=== PATIENT | female | born 1990 | race Caucasian/White ===

== ENCOUNTER 2020-05-02 22:00 | Emergency (ER) | payer OTHER ==
[~2020-05-02] VITALS: Ht 167.6 cm; Wt 99.8 kg
[2020-05-02 22:07] VITALS: BP_SYST 156
[2020-05-02] MEDS ORDERED: DIPH-TET-PERTUS Vaccine 0.5 ML VIAL (ADACEL) I.M. ONE (22:30)
[2020-05-02] MEDS ORDERED: BACITRACIN 1 GM OINT TP ONE (22:30)
[2020-05-02] MEDS ORDERED: IBUPROFEN 800 MG TABLET PO ONE (22:30)
[2020-05-02] MEDS ORDERED: AMOXICILLIN/CLAVULANATE POTASSIUM 875 MG TABLET PO ONE (23:15)
[2020-05-02 23:20] VITALS: BP_SYST 133
== END 2020-05-02 23:20 | disposition home or self-care (01) ==
LOC: SED 22:00
DX: S61.451A Open bite of right hand, initial encounter (principal); Z88.2 Allergy status to sulfonamides; W54.0XXA Bitten by dog, initial encounter; Y93.89 Activity, other specified; Y92.89 Other specified places as the place of occurrence of the external cause; Y99.8 Other external cause status
CPT/HCPCS: 90715; 99284